=== PATIENT | male | born 1940 | race Caucasian/White ===

== ENCOUNTER 2024-06-26 12:05 | Observation (INO) ==
--- NOTE | 2024-06-21 10:07 | Anesthesiology Consultation ---
Date of Service June 21, 2024 Assessment & Plan (1) Encounter for pre-operative examination: Chart Review Chart Review: Pending: Refer to Additional Notes / Consult section (please send optimization note to Cardio as well as request copy of recent testing (ECHO mentioned in 04/18/24 note)) and Patient NOT seen in Pre Admission Testing Infectious Disease screening: Per PAT nursing assessment on 06/20/24, No known infectious disease contacts in past 10 days or current infectious disease symptoms. No recent travel outside the country. History Surgery Operation Date: 06/26/24 07:30 Proposed Procedures p TURP (Transurethral Resection of Prostate), Prostate Biopsy Under Anesthesia - Celestino Andre MD Height/Weight Height: 5 ft 7 in Weight: 65.771 kg Allergies Allergy/AdvReac Type Severity Reaction Status Date / Time Penicillins Allergy Unknown Unknown Verified 06/20/24 07:46 Medications Home Medications Medication Instructions Recorded Confirmed Last Taken amlodipine 10 mg tablet 10 mg PO QAM 01/20/22 06/20/24 Unknown cholecalciferol (vitamin D3) 25 25 mcg PO DAILY 01/20/22 06/20/24 Unknown mcg (1,000 unit) capsule ezetimibe 10 mg tablet (Zetia) 10 mg PO QAM 01/20/22 06/20/24 Unknown lisinopril 10 mg tablet 10 mg PO QAM 01/20/22 06/20/24 Unknown multivitamin 1 tab PO DAILY 01/20/22 06/20/24 Unknown nitroglycerin 0.4 mg sublingual 0.4 mg sublingual Q5M PRN Chest 01/20/22 06/20/24 Unknown tablet Pain pravastatin 20 mg tablet 20 mg PO QPM 01/20/22 06/20/24 Unknown vitamins A,C,M-nsvt-dxenyp 4,296 1 cap PO BID 01/20/22 06/20/24 Unknown mcg-226 mg-90 mg capsule (ICaps AREDS) omega 1-hae-mql-fish oil 60 mg-90 1 cap PO DAILY 04/19/22 06/20/24 Unknown mg-500 mg capsule (Fish Oil) ciprofloxacin HCl 500 mg tablet 500 mg PO BID #20 tabs 06/18/24 06/20/24 Unknown (Cipro) esomeprazole magnesium 40 mg 40 mg PO QAM 06/20/24 06/20/24 Unknown capsule,delayed release (Nexium) tadalafil 5 mg tablet 5 mg PO QAM 06/20/24 06/20/24 Unknown tamsulosin 0.4 mg capsule (Flomax) 0.4 mg PO QPM 06/20/24 06/20/24 Unknown Past Medical History Medical History (Updated 06/21/24 @ 11:52 by Pat Dickey PA-C) Asbestos exposure "Many many years ago" Follows with PCP - monitoring/no issues BPH (benign prostatic hyperplasia) with LUTS CAD (coronary artery disease) x2 stents - placed in [place] Dr Bari Casanova 10/2020 (R sided PLB and R sided PDA) - now follows Dr Marcello Borja (per most recent note, 'with residual 50% Cx lesion and mild LAD disease) GERD (gastroesophageal reflux disease) Hearing loss Bilateral hearing aids History of adverse reaction to anesthesia after 05/22/24 surgery under GA @ [facility]; experienced urinary retention that required ER visit - [facility] "Ended up needing catheter which resulted with UTI. Its all cleared up now" History of small bowel obstruction 2019 - No surgery - No current issues at this time HTN (hypertension) Hx: UTI (urinary tract infection) After 05/22/24 Surgery at [facility]. No current issues at this time. 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 (pathology results for LN and tumor bed showed no evidence of tumor) Prostate cancer 2019 - No surgery/Chemo/Xrt - [place] [facility] [place] Right bundle branch block Past Family History Family History Family/Other Hypertension Brother Cancer Heart disease Past Surgical History Surgical History (Updated 06/21/24 @ 11:52 by Pta Dickey PA-C) H/O epididymectomy H/O foot surgery Left H/O prostate biopsy History of cardiac cath x2 stents - placed in [place] Dr Bari Casanova 2017 - now follows Dr Marcello Borja Hx of appendectomy Hx of colonoscopy Hx of elbow surgery 03/22/24 R elbow tumor removed; 05/22/24 tumor bed excision and sentinel LN bx Hx of esophagogastroduodenoscopy Social History Smoking Status: Never smoker Do You Dip or Chew Tobacco: No Hx Alcohol Use: No Hx Substance Use: No substance use type: does not use Lab Results Anesthesia Preop Results Results Anesthesia Widget: WBC 8.95 K/ul (4.8-10.8) 06/18/24 Hgb 13.6 g/dl (14.0-18.0) L 06/18/24 Hct 39.8 % (42.0-52.0) L 06/18/24 Plt 290 K/uL (130-400) 06/18/24 Na 139 mmol/L (136-145) 06/18/24 K 3.6 mmol/L (3.5-5.1) 06/18/24 Cl 104 mmol/L (98-107) 06/18/24 CO2 30 mmol/L (21-32) 06/18/24 BUN 21 mg/dl (6-23) 06/18/24 Creat 1.02 mg/dl (0.6-1.4) 06/18/24 Glucose Level 102 mg/dl (70-99(Fasting)) H 06/18/24 Testing Electrocardiogram Date: 06/18/24 Findings: + NSR @ (74bpm) RBBB. Chest X-Ray Date: 06/18/24 Findings: + NAD Calcified granulomata of the mid right lung. Degenerative changes of the thoracic spine. Uncovertebral degenerative changes of the cervical spine. Degenerative changes of the right acromioclavicular joint .
[~2024-06-26 12:05] MED LIST: ACETAMINOPHEN 1000 MG/100 ML IV IV ONE; KETAMINE HCL 10MG/ML SYR ONE; PROPOFOL IV EMULSION 10 MG/ML 100 ML VIAL IV ONE
[2024-06-26] MEDS ORDERED: MIDAZOLAM HCL 1 MG/ML 2ML VIAL ONE (12:11)
[2024-06-26] MEDS: LACTATED RINGER'S 1,000 ML IV SCH (12:30)
[2024-06-26] MEDS: SODIUM CHLORIDE 0.9% 1,000 ML IV SCH (12:31)
[2024-06-26] MEDS: GENTAMICIN SULFATE 80 MG in DEXTROSE 5% 100 ML IV SCH (12:32)
[2024-06-26] MEDS ORDERED: fentaNYL citrate PF 100 MCG/2 ML VIAL ONE (12:53)
[2024-06-26] MEDS ORDERED: LIDOCAINE 2% 2 ML VIAL/AMP(20MG/ML) INFIL ONE (12:54)
[2024-06-26] MEDS ORDERED: PROPOFOL IV EMULSION 10 MG/ML 20 ML VIAL IV ONE (12:54)
--- NOTE | 2024-06-26 12:57 | History & Physical Bridge Note ---
Date of Service June 26, 2024 History & Physical Bridge Note I have examined the patient, reviewed the History & Physical and in the interval since the performance of the History & Physical I have noted the following changes of clinical significance: no changes noted
[2024-06-26] MEDS ORDERED: fentaNYL citrate PF 100 MCG/2 ML VIAL IV PRN (13:03)
[2024-06-26] MEDS ORDERED: ATROPINE SULFATE 0.1 MG/ML 10ML SYR IV PRN (13:03)
[2024-06-26] MEDS ORDERED: ePHEDrine sulfate 50 MG/ML AMP IV PRN (13:03)
[2024-06-26] MEDS ORDERED: PROMETHAZINE HCL 6.25 MG in SODIUM CHLORIDE 0.9% 50 ML IV PRN (13:03)
[2024-06-26] MEDS ORDERED: ePHEDrine sulfate 50 MG/ML AMP ONE (13:12)
[2024-06-26] MEDS: AMPICILLIN 1,000 MG in SODIUM CHLOR 0.9% MINI-B 100 ML IV SCH ×2 (13:30→19:48)
[2024-06-26] MEDS ORDERED: PHENYLEPHRINE HCL 10 MG/ML VIAL ONE (13:32)
[2024-06-26] MEDS ORDERED: ONDANSETRON INJ 2 MG/ML 2 ML VIAL ONE (13:35)
[2024-06-26] MEDS ORDERED: DEXAMETHASONE SOD INJ 4 MG/ML VIAL ONE (13:35)
--- NOTE | 2024-06-26 15:16 | Operative Report ---
PG Post Operative Report Pre & Post Diagnosis Operation Date: 06/26/24 13:20 Pre-Op Diagnosis: Malignant Neoplasm of Prostate Post-Op Diagnosis: Malignant Neoplasm of Prostate I identified the patient and participated in the time-out.: Yes Procedure Operation Date: 06/26/24 13:20 Actual Procedures p Transurethral Resection of Prostate, Prostate Biopsy Under Anesthesia(Not Applicable) - Celestino Andre MD Surgeon Celestino Andre MD Tenterer none Estimated Blood Loss 10 Findings Consistent with Post-Op Diagnosis Specimens 1. Prostate biopsy specimens Right base x 2 Right mid x 2 Right apex x 2 Right anterior x 1 Left base x 2 Left mid x 2 Left apex x 2 Left anterior x 1 2. TURP specimenprostate chips Description of Procedure Patient was identified in the preoperative holding area and appropriate informed consents reviewed and completed and he was transported the operating suite. Upon arrival he received appropriate preoperative antibiotics in the form ampicillin and gentamicin. Of note, he has underlying penicillin allergy and showed no reaction to the administered medications. After induction of general anesthesia was placed in dorsal lithotomy position. Before sterile prep and drape a digital rectal examination was performed which revealed no nodules or abnormalities. A transrectal ultrasound probe was inserted and ultrasonographic evaluation conducted. He has numerous small calcifications scattered throughout the prostate and some intravesical intrusion of his prostate into the bladder. His prostate volume was estimated to be approximately 65 cc. After the ultrasonographic evaluation and began my biopsies taking a standard sextant biopsy template worth of specimens. He tolerated the procedure well and had no significant bleeding. The ultrasound was removed and the patient was sterilely prepped and draped in standard fashion. To begin the cystoscopic portion of the case I advanced a resectoscope with 30 degree lens via urethra. He has no strictures and he has an enlarged prostate with a high bladder neck and clear intravesical intrusion. He is a heavily trabeculated bladder with numerous small calculi scattered around the dependent portion of the bladder. I was able to identify ureteral orifices before beginning resection of the intravesical component of the prostate. I started at 5 and 7:00 making incisions to bring this tissue down to the normal level of the bladder neck. I then resected the intervening tissue. I progressed by resecting the remainder of the bladder neck circumferentially and then addressing the left lateral lobe followed by the right lateral lobe. Apical tissue was trimmed last. Posterior tissue was also trimmed throughout the case. All specimen was irrigated free of the bladder and hemostasis obtained. At the conclusion, a 22 Turkmen Horowitz catheter was inserted and inflated with 30 cc of water. He was reversed of anesthesia and taken to the recovery room in standard fashion. There were no complications. Prostate chips were sent as a specimen as were all of the individual biopsy specimens from the prostate biopsy. I attest to the content of the Intraoperative Record and any orders documented therein. Any exceptions are noted below.
--- NOTE | 2024-06-26 15:45 | Anesthesiology Progress Note ---
Date of Service June 26, 2024 Anesthesia Post Procedure Vital Signs Vital Signs: Temp Pulse Pulse Resp BP Pulse Ox O2 Del Method 06/26/24 15:30 66 13 127/65 99 Oxymask 06/26/24 15:20 62 11 L 128/68 99 Oxymask 06/26/24 15:10 67 10 L 134/77 99 Oxymask 06/26/24 15:00 73 12 131/75 99 Oxymask 06/26/24 14:51 36.0 C L 74 17 141/76 H 98 Oxymask 06/26/24 12:38 36.7 C 75 18 147/77 H 100 Room Air O2 Flow Rate 06/26/24 15:30 4 06/26/24 15:20 4 06/26/24 15:10 4 06/26/24 15:00 4 06/26/24 14:51 4 06/26/24 12:38 Transfer of Care Handoff Completed per policy Notes Mental Status: alert / awake / arousable and participated in evaluation Nausea / Vomiting: adequately controlled Pain: adequately controlled Airway Patency, RR, SpO2: stable & adequate BP & HR: stable & adequate Hydration State: stable & adequate Anesthetic Complications: no major complications apparent and Pt Satisfied with anesthetic care
[2024-06-26] MEDS: FAMOTIDINE/PF 20 MG/2 ML VIAL IV ONE (16:16)
[2024-06-26] MEDS: ALLERGY Noted to ORDERED Medication SCH (16:18)
[2024-06-26] MEDS ORDERED: GENTAMICIN SULFATE 80 MG in DEXTROSE 5% 100 ML IV SCH (16:21)
[2024-06-26] MEDS ORDERED: GENTAMICIN CONSULT ACTIVE PRN (16:21)
[2024-06-26] MEDS ORDERED: NITROGLYCERIN SL 0.4 MG/TAB TAB SL PRN (16:21)
[2024-06-26] MEDS: SODIUM CHLORIDE 0.9% 500 ML IV SCH (16:42)
[2024-06-26 17:31] LABS: Creatinine Clr Calc Pharmacy 64.3 ml/min
[2024-06-26] MEDS: GENTAMICIN SULFATE 340 MG in DEXTROSE 5% 100 ML IV SCH (17:53)
[2024-06-26] MEDS: MoRPHine SULFATE 2 MG/ML CARP IV STA (19:45)
[2024-06-26] MEDS ORDERED: AMPICILLIN 1,000 MG in SODIUM CHLOR 0.9% MINI-B 100 ML IV SCH (19:45)
[2024-06-26] MEDS: PRAVASTATIN SOD 20 MG TAB PO SCH (19:48)
--- NOTE | 2024-06-26 20:59 | Communication Note ---
Date of Service: June 26, 2024 I was called by nursing staff at approximately 8:21 PM the patient's Horowitz catheter appeared to be nonfunctional. I reported the patient's 4 at bedside within 5 minutes. This patient underwent a TURP by Dr. Andre earlier today. The nurse noted that the patient was having excruciating pain as though his bladder would not empty. She attempted to flush and irrigate his catheter and was unsuccessful at doing so. She initially talked with Dr. Andre who instructed her to switch the patient's Horowitz catheter when she started to deflate the balloon of the patient's existing Horowitz catheter it began to drain a little bit resulting in some relief of the patient's symptoms. Upon my reported the bedside and hearing this information I decided to flush and irrigate catheter which was unsuccessful. I had the nurse perform a bladder scan and the patient had an excess of 600 cc of fluid in his bladder. I therefore elected to remove the patient's existing Horowitz catheter. I then easily placed a 20 Turkmen coud catheter under sterile conditions without difficulty. Upon placing his Horowitz catheter large amount of urine immediately drained out. As patient previous Horowitz catheter did appear to be clotted off, I did decide to flush and irrigate the newly placed catheter and upon doing so I was able to treat several small blood clots. I continue to flush and irrigate catheter until his urine was clear. I then placed the Horowitz catheter to gravity drainage and upon the conclusion of my procedure had approximately 100 cc of clear urine in the bladder. I then had the nurses perform an additional bladder scan the patient's bladder appeared to be empty. The patient noted marked symptomatic relief following the procedure noted above. I did discuss with the patient and the nurse that if his Horowitz catheter appears to clot off again they can employ manual flushing irrigation techniques and if this is unsuccessful he should notify me. I did discuss with the patient that if his current catheter clots off and we cannot flush and irrigated he will likely necessitate another catheter change but the need for this is yet to be determined.
--- NOTE | 2024-06-27 07:57 | Urology Progress Note ---
Date of Service June 27, 2024 Assessment & Plan (1) Benign localized prostatic hyperplasia with lower urinary tract symptoms (LUTS): (2) Prostate CA: Plan pod #1 s/p TURP and TRUS bx -recovery on pace - VT this AM - hope for d.c home this afternoon Admission and Anticipated Discharge Date Admission Date: June 26, 2024 Subjective had one episode of montes obstruction last night. switching the catheter resolved his issues no other problems feeling great this am Physical Exam Physical Exam: urine pink/clear draining well Results & Data Vital Signs (Past 12 Hours) Vital Signs Temp Pulse Pulse Resp BP Pulse Ox O2 Del Method 06/27/24 07:45 36.9 C 89 14 138/50 L 97 Room Air 06/27/24 07:06 36.8 C 96 H 18 145/80 H 96 Room Air 06/27/24 04:36 36.8 C 86 16 138/74 95 Room Air 06/27/24 00:10 36.6 C 88 16 138/73 99 Room Air PG Care Time/CCT Total # of Minutes Spent Total Time Spent with Patient: Total time spent is greater than 50% in coordination of care (as documented) at patient's floor/unit and/or counseling patient: Coding Level of Care Code None Diagnoses Benign localized prostatic hyperplasia with lower urinary tract symptoms (LUTS) N40.1 Prostate CA C61
[2024-06-27 08:03] LABS: Basophils # (auto) 0.01 K/uL (0.00-0.20); Basophils % (auto) 0.1 %; Hemoglobin 13.9 g/dl (14.0-18.0); Immature Granulocytes # (auto) 0.03 K/uL (0.01-0.20); Immature Granulocytes % (auto) 0.3 %; Lymphocytes # (auto) 1.18 K/uL (1.20-3.40); Lymphocytes % (auto) 11.5 %; Mean Corpuscular Hgb Conc 35.6 g/dL (32.0-36.0); Mean Corpuscular Volume 87.1 fL (80.0-100.0); Mean Platelet Volume 10.1 fL (9.4-12.4); Monocytes # (auto) 0.57 K/uL (0.11-0.59); Monocytes % (auto) 5.6 %; Neutrophils # (auto) 8.44 K/uL (1.40-6.50); Neutrophils % (auto) 82.5 %; Platelet Count 254 K/uL (130-400); RDW Coefficient of Variation 13.2 % (11.5-14.5); RDW Standard Deviation 41.4 fL (36.4-46.3); Red Blood Count 4.48 M/uL (4.70-6.10); White Blood Count 10.23 K/ul (4.8-10.8)
[2024-06-27 08:15] LABS: BUN Creatinine Ratio 19.5 (10-20); Calcium 10.6 mg/dl (8.6-10.3); Creatinine Clr Calc Pharmacy 62.7 ml/min
[2024-06-27] MEDS: lisinopril 10 MG TAB PO SCH (08:23)
[2024-06-27] MEDS: PANTOprazole 40 MG TAB PO SCH (08:23)
[2024-06-27] MEDS: MULTIVITAMIN TAB PO SCH (08:23)
[2024-06-27] MEDS: EZETIMIBE 10 MG TAB PO SCH (08:23)
[2024-06-27] MEDS: amLODIPine BESYLATE 5 MG TAB PO SCH (12:05)
--- NOTE | 2024-06-29 13:52 | Discharge Summary ---
Date of Service June 29, 2024 Admission HPI Per Admitting Provider Patient admitted for TURP secondary to urinary retention Principal Diagnosis Urinary retention/prostate cancer Discharge Data Allergies Allergy/AdvReac Type Severity Reaction Status Date / Time Penicillins Allergy Unknown Unknown Verified 06/26/24 12:23 Procedures Performed Operation Date: 06/26/24 13:20 Actual Procedures p Transurethral Resection of Prostate, Prostate Biopsy Under Anesthesia(Not Applicable) - Celestino Andre MD Hospital Course (1) Prostate CA: (2) Benign localized prostatic hyperplasia with lower urinary tract symptoms (LUTS): Plan Patient admitted for TURP and prostate biopsydetails of those procedures as dictated previously in the operative report. In summary, he tolerated the procedure well. He did have some brief catheter obstruction on the night of surgery but this was navigated at the bedside. He passed a voiding trial in the morning on postoperative day #1 and was discharged home in stable condition. There were no complications. Total Time Total Time Spent Total Time Spent (In Minutes): 15 Discharge Plan Discharge Items Patient Disposition: Home - Self-Care Reason For Visit: Malignant Neoplasm of Prostate, Benign Prostatic H Discharge Diagnosis: Malignant Neoplasm of Prostate, BPH Activity: Per Instructions section Non-emergency contact: Surgeon and Urologist Call non-emergency contact if: you have any medication questions, your symptoms worsen, your pain is not controlled, your pain is worsening and you have a fever Follow-up/Referrals: Celestino Andre MD [Physician] - Santana Bangura DO [Primary Care Provider] - Diet: Regular Addtl Attending Provider Instructions: The urology office will contact you to arrange a follow-up visit. Please complete antibiotics as prescribed. Please take all medications as prescribed and keep all follow-ups as scheduled. Please call our office at [phone] with any questions, concerns or need to reschedule appointments for any reason. We are happy to assist you. Tips for your recovery at home: Dont be alarmed by brownish or reddish blood or clots in your urine. This is a result of the procedure. This may occur off and on for weeks to months after the procedure but should continue to improve. Drink plenty of fluids during the day (enough to keep your urine very light colored). This will help keep a healthy flow of urine. Do not lift >25 lbs until your followup Avoid constipation. Please use a stool softener (Colace) for the first two weeks after your procedure Be sure to finish the antibiotics as prescribed. When to call [facility] at [phone]: Your urine contains heavy blood clots or you are unable to urinate You are constantly leaking urine Fever of 101F or higher, chills, nausea, or vomiting Your pain is not relieved with medication Pending Studies at Discharge: Yes (pathology) Stand-Alone Forms: My [facility], Smoking Cessation Medications and DC Order Prescriptions: Continued omega 0-ojh-dlx-fish oil [Fish Oil] 60-90-500 mg capsule 1 cap PO DAILY amlodipine 10 mg tablet 10 mg PO QAM ezetimibe [Zetia] 10 mg tablet 10 mg PO QAM ICaps AREDS [id number],[id number] uusq-zo-vpcr capsule 1 cap PO BID lisinopril 10 mg tablet 10 mg PO QAM multivitamin Tablet 1 tab PO DAILY nitroglycerin 0.4 mg tablet, sublingual 0.4 mg sublingual Q5M PRN (Reason: Chest Pain) Rx Instructions: do not exceed 3 doses per episode pravastatin 20 mg tablet 20 mg PO QPM cholecalciferol (vitamin D3) 25 mcg (1,000 unit) capsule 25 mcg PO DAILY ciprofloxacin HCl [Cipro] 500 mg tablet 500 mg PO BID Qty: 20 0RF Rx Instructions: Please start 3 days prior to your surgery with Dr. Andre tamsulosin [Flomax] 0.4 mg capsule 0.4 mg PO QPM tadalafil 5 mg tablet 5 mg PO QAM esomeprazole magnesium [Nexium] 40 mg Capsule,Delayed Release(Dr/Ec) 40 mg PO QAM Discharge Orders: Discharge Order (Routine); Ordered 06/27/24 Ordered By: Luisa Calix Admission Data Admit Date/Time: 06/26/24 15:07 Attending Provider: Celestino Andre Admit Provider: Celestino Andre Primary Care Provider: Santana Bangura Other Interventions: Discharge Summary Assessment (RN) Last Done: 06/27/24 14:54 Coding Level of Care Code 21908 IN/OBS DISCH 30 MIN/LESS Diagnoses Prostate CA C61 Benign localized prostatic hyperplasia with lower urinary tract symptoms (LUTS) N40.1
== END 2024-06-27 16:03 | disposition home or self-care (01) ==
LOC: ASU 12:05 → 3E 12:05
DX: I25.10 Atherosclerotic heart disease of native coronary artery without angina pectoris; C61 Malignant neoplasm of prostate; K21.9 Gastro-esophageal reflux disease without esophagitis; R30.9 Painful micturition, unspecified; Z95.5 Presence of coronary angioplasty implant and graft; I10 Essential (primary) hypertension; Z88.0 Allergy status to penicillin; Z79.899 Other long term (current) drug therapy; N40.1 Benign prostatic hyperplasia with lower urinary tract symptoms

== ENCOUNTER 2025-02-01 13:57 | Inpatient (IN) ==
--- NOTE | 2025-02-01 14:32 | Emergency Department Note ---
Impression & Plan FIDEL (acute kidney injury) ADMIT ED Provider Note HPI: History obtained from patient. The patient is a 85-year-old gentleman who presents the emergency department with lower back pain and left-sided abdominal pain 3 days after having a cystoscopy for a left-sided bladder mass. Patient states that he had increasing pain yesterday afternoon throughout the night last night and into today. Patient states that he only urinated about 1 time in the past 24 hours and it was not much urine. He states it was clear in appearance. Patient states he is also had some constipation. Patient denies any recent fever/chills, on arrival here to the ED the patient is hemodynamically stable, he otherwise appears to be in no acute distress on my initial assessment. ROS: - Per HPI Differential Diagnosis: Urinary tract infection, acute cystitis, pyelonephritis, ureteral rupture, perforated viscus, obstructive uropathy, amongst other potential pathologies. *Outpatient medications and allergy history reviewed. PE: General: Alert HEENT: Normocephalic, trachea midline Eyes: Extraocular eye movement is intact, no scleral erythema Pulmonary: Clear to auscultation bilaterally, no wheezing Cardio: Regular rate and rhythm GI: Abdomen is soft to palpation, there is some generalized tenderness without guarding rigidity : Moderate suprapubic tenderness to palpation MSK: No evidence of trauma or malformation of the extremities, no edema Skin: No evidence of rash Neuro: Alert, no focal deficits Psychiatric: Cooperative INDEPENDENT INTERPRETATIONS: awake overnight monitor: (As interpreted by myself): - An order was placed for continuous cardiac monitoring - Patient was noted to be in sinus rhythm with a rate of 80 Interventions provided in ED: - IV fluid bolus, IV ceftriaxone, IV morphine, IV Zofran, IV Dilaudid Medical Decision Making: IV was established and lab work obtained, patient was placed on awake overnight monitor. Lab work shows no leukocytosis, hemoglobin is stable at 11.7, platelet count is normal, CMP shows creatinine elevation to 3.39 which does appear to be new (baseline 1.6 in December). Urinalysis shows 3+ blood, 1+ leukocyte Estrace with mild pyuria. Will send for urine culture. Blood cultures were also drawn. CT imaging of the abdomen pelvis without contrast shows prostatitis, cystitis, hydronephrosis, and presacral inflammatory changes. Patient was having some difficulty urinating on his own here in the ED and therefore Horowitz catheter was placed with approximately 250 cc of clear yellow urine drained. I discussed all of the above findings with the on-call urologist, Dr. Mart, he is in agreement for the patient to be admitted and does recommend starting IV antibiotics with ceftriaxone. Case was then discussed with the on-call hospitalist and the patient was placed for admission in stable condition. Consultants/Discussions held with other healthcare providers: - Urology, Dr. Mart - Hospitalist, Dr. Wylie Disposition discussion held by myself with: - Patient and family at the bedside Diagnosis: 1. Acute kidney injury 2. Prostatitis, postoperative 3. UTI, acute Disposition: Admission Bro Burks DO Emergency Medicine Past Med/Surg History Problem List (Updated 02/01/25 @ 18:33 by Bro Burks DO) FIDEL (acute kidney injury) (Acute) Encounter for pre-operative examination Hydronephrosis Bladder tumor Nasal septal deviation Nasal crusting Sensorineural hearing loss, bilateral Benign localized prostatic hyperplasia with lower urinary tract symptoms (LUTS) Arthritis High blood pressure Hyperlipidemia GERD (gastroesophageal reflux disease) CAD (coronary artery disease) Prostate CA Medical History Bladder mass incidentally found while at [facility] ER 12/2024 - reason for upcoming procedure Osteoarthritis Right bundle branch block History of adverse reaction to anesthesia after 05/22/24 surgery under GA @ [facility]; experienced urinary retention that required ER visit - [facility] "Ended up needing catheter which resulted with UTI. 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 (pathology results for LN and tumor bed showed no evidence of tumor) had radiation treatments and currently gets Keytruda infusions. Hearing loss Bilateral hearing aids BPH (benign prostatic hyperplasia) with LUTS History of small bowel obstruction 2019 - No surgery - No current issues at this time Hyperlipidemia HTN (hypertension) GERD (gastroesophageal reflux disease) CAD (coronary artery disease) x2 stents - placed in [place] Dr Bari Casanova 10/2020 (R sided PLB and R sided PDA) - now follows Dr Marcello Borja (per most recent note, 'with residual 50% Cx lesion and mild LAD disease) Prostate cancer 2019 - No surgery/Chemo/Xrt- Follows [facility] Urology Asbestos exposure "Many many years ago" Follows with PCP - monitoring/no issues Surgical History Hx of elbow surgery 03/22/24 R elbow tumor removed; 05/22/24 tumor bed excision and sentinel LN bx Hx of esophagogastroduodenoscopy Hx of colonoscopy H/O prostate biopsy H/O foot surgery Left H/O epididymectomy Hx of appendectomy History of cardiac cath x2 stents - placed in [place] Dr Bari Casanova 2018 - now follows Dr Armendariz Cardio Family History Family/Other Hypertension Brother Heart disease Cancer Other No family history of adverse response to anesthesia Social History Smoking Status: Never smoker Second Hand Exposure: No; Do You Dip or Chew Tobacco: No; Hx Alcohol Use: No Hx Substance Use: No Preferred Language: Burkinan Communication Ability: Effective Roofer [place]um Required: No Beliefs That Will Affect Care: None marital status: Current Living Situation: Spouse current occupational status: retired Feels Safe at Home: Yes Assistive Devices: Glasses and Hearing Aid - Bilateral Allergies Allergies Allergy/AdvReac Type Severity Reaction Status Date / Time Penicillins Allergy Unknown Unknown Verified 01/29/25 05:57 Home Meds Home Medications Medication Instructions Recorded Confirmed amlodipine 10 mg tablet 10 mg PO QAM 01/20/22 02/01/25 cholecalciferol (vitamin D3) 25 25 mcg PO QAM 01/20/22 02/01/25 mcg (1,000 unit) capsule ezetimibe 10 mg tablet (Zetia) 10 mg PO QAM 01/20/22 02/01/25 lisinopril 10 mg tablet 10 mg PO HS 01/20/22 02/01/25 multivitamin 1 tab PO QAM 01/20/22 02/01/25 nitroglycerin 0.4 mg sublingual 0.4 mg sublingual Q5M PRN Chest 01/20/22 02/01/25 tablet Pain pravastatin 20 mg tablet 20 mg PO HS 01/20/22 02/01/25 omega 5-srp-kiz-fish oil 60 mg-90 1 cap PO HS 04/19/22 02/01/25 mg-500 mg capsule (Fish Oil) esomeprazole magnesium 40 mg 40 mg PO QAM 06/20/24 02/01/25 capsule,delayed release (Nexium) acetaminophen 500 mg tablet 1,000 mg PO TID PRN Pain 01/25/25 02/01/25 (Tylenol Extra Strength) aspirin 81 mg capsule 81 mg PO QAM 01/25/25 02/01/25 coQ10 (ubiquinol) 200 mg capsule 200 mg PO HS 01/25/25 02/01/25 methylcellulose (laxative) 1 tbsp PO QAM 01/25/25 02/01/25 (Citrucel Sugar Free oral powder) vitamins A,C,I-zhyh-hliolx 4,296 1 cap PO BID 01/25/25 02/01/25 mcg-226 mg-90 mg capsule (PreserVision AREDS) Previous Rx's Medication Instructions Recorded tadalafil 5 mg tablet 5 mg PO QAM #90 tabs 07/25/24 ciprofloxacin HCl 500 mg tablet 500 mg PO BID #6 tabs 01/29/25 (Cipro) Results & Data (ED) Vital Signs Vital Signs - 24 hr 02/01/25 14:05 02/01/25 14:42 02/01/25 15:03 Temperature 36.6 C Temperature Source Temporal Artery Scan Pulse Rate 79 78 76 Pulse Rhythm Regular Respiratory Rate 18 16 Blood Pressure 155/76 H Blood Pressure Mean 102 Pulse Oximetry 98 96 Oxygen Delivery Method Room Air Room Air Sepsis Recent Fever Within 48 Hours No Sepsis New/Unexplained Change in Mental Status N/A Sepsis Action Taken by Nursing No Action Required 02/01/25 15:35 02/01/25 16:00 02/01/25 16:30 Temperature Temperature Source Pulse Rate 78 82 80 Pulse Rhythm Respiratory Rate 13 15 14 Blood Pressure 132/73 143/73 H 150/77 H Blood Pressure Mean 104 106 112 Pulse Oximetry 95 99 91 Oxygen Delivery Method Sepsis Recent Fever Within 48 Hours Sepsis New/Unexplained Change in Mental Status Sepsis Action Taken by Nursing 02/01/25 17:30 02/01/25 18:00 Temperature Temperature Source Pulse Rate 87 78 Pulse Rhythm Respiratory Rate 12 15 Blood Pressure 153/74 H 145/78 H Blood Pressure Mean 120 106 Pulse Oximetry 95 97 Oxygen Delivery Method Sepsis Recent Fever Within 48 Hours Sepsis New/Unexplained Change in Mental Status Sepsis Action Taken by Nursing Laboratory Data 02/01/25 14:35 02/01/25 14:35 Lab Results 02/01/25 02/01/25 Range/Units 14:35 15:36 WBC 7.49 (4.8-10.8) K/ul RBC 3.76 L (4.70-6.10) M/uL Hgb 11.7 L (14.0-18.0) g/dl Hct 33.2 L (42.0-52.0) % MCV 88.3 (80.0-100.0) fL MCH 31.1 (25.0-34.0) pg MCHC 35.2 (32.0-36.0) g/dL RDW Std Deviation 43.9 (36.4-46.3) fL RDW Coeff of [place] 13.6 (11.5-14.5) % Plt Count 182 (130-400) K/uL MPV 9.7 (9.4-12.4) fL Immature Gran % (Auto) 0.4 % Neut % (Auto) 85.0 % Lymph % (Auto) 6.3 % [place] % (Auto) 7.2 % Eos % (Auto) 0.7 % Baso % (Auto) 0.4 % Neut # (Auto) 6.37 (1.40-6.50) K/uL Lymph # (Auto) 0.47 L (1.20-3.40) K/uL [place] # (Auto) 0.54 (0.11-0.59) K/uL Eos # (Auto) 0.05 (0.00-0.50) K/uL Baso # (Auto) 0.03 (0.00-0.20) K/uL Immature Gran # (Auto) 0.03 (0.01-0.20) K/uL Sodium 137 (136-145) mmol/L Potassium 3.9 (3.5-5.1) mmol/L Chloride 108 H (98-107) mmol/L Carbon Dioxide 22 (21-32) mmol/L Anion Gap 7 (3-11) BUN 50 H (6-23) mg/dl Creatinine 3.39 H (0.6-1.4) mg/dl Est Cr Clr Drug Dosing Not Reportable eGFR 17.04 BUN/Creatinine Ratio 14.7 (10-20) Glucose 87 (70-99(Fasting)) mg/dl Calcium 10.1 (8.6-10.3) mg/dl Total Bilirubin 0.5 (0.2-1.0) mg/dl AST 14 (13-39) U/L ALT 11 (7-52) U/L Alkaline Phosphatase 65 (34-104) U/L Total Protein 6.7 (6.0-8.3) gm/dl Albumin 3.9 (3.4-5.0) gm/dl Globulin 2.8 (2.5-4.0) gm/dl Albumin/Globulin Ratio 1.4 (0.9-2) Lipase 51 (11-82) U/L Urine Color Yellow Urine Appearance Clear (Clear) Urine pH 6.0 (4.5-7.5) Ur Specific [place] 1.007 (1.000-1.030) Urine Protein 1+ H (Negative) Urine Glucose (UA) Negative (Negative) Urine Ketones Negative (Negative) Urine Blood 3+ H (Negative) Urine Nitrite Negative (Negative) Urine Bilirubin Negative (Negative) Urine Urobilinogen Negative (Negative) Ur Leukocyte Esterase 1+ H (Negative) Urine WBC (Auto) 6-10 H (0-5) /hpf Urine RBC (Auto) 6-10 H (0-2) /hpf U Hyaline Cast (Auto) 0-2 (0-2) /lpf U Epithel Cells (Auto) 0-2 (0-2) /hpf Urine Bacteria (Auto) None Seen (None Seen) Urine Comment Administered Medications Discontinued Medications Hydromorphone HCl (Hydromorphone Inj 1 Mg/Ml Syringe) 1 mg IV NOW STA Stop: 02/01/25 16:25 Last Admin: 02/01/25 16:34 Dose: 1 mg Documented By: ANT Ceftriaxone Sodium (Rocephin) 2,000 mg in 50 mls @ 100 mls/hr IV NOW STA Stop: 02/01/25 16:30 Last Infusion: 02/01/25 16:46 Dose: Infused Documented By: Admin: 02/01/25 16:18 Dose: 100 mls/hr Documented By: ANT Sodium Chloride (Nss) 1,000 mls @ 999 mls/hr IV .Q1H1M ONE Stop: 02/01/25 17:01 Last Infusion: 02/01/25 17:16 Dose: Infused Documented By: Admin: 02/01/25 16:18 Dose: 999 mls/hr Documented By: ANT Morphine Sulfate (Morphine Sulfate 4 Mg/Ml 1 Ml Carp\\Vial) 4 mg IV NOW STA Stop: 02/01/25 14:31 Last Admin: 02/01/25 14:40 Dose: 4 mg Documented By: ANT Morphine Sulfate (Morphine Sulfate 4 Mg/Ml 1 Ml Carp\\Vial) 4 mg IV NOW STA Stop: 02/01/25 15:25 Last Admin: 02/01/25 15:41 Dose: 4 mg Documented By: ANT Ondansetron HCl (Ondansetron Inj 2 Mg/Ml 2 Ml Vial) 4 mg IV NOW STA Stop: 02/01/25 14:31 Last Admin: 02/01/25 14:40 Dose: 4 mg Documented By: ANT Imaging Data Radiologist's Impression: Abdomen/Pelvis CT 02/01/25 14:30 CT SCAN OF THE ABDOMEN AND PELVIS WITHOUT IV CONTRAST CLINICAL HISTORY: Back pain. Lower abdominal pain. Recent cystoscopy. COMPARISON STUDY: Abdominal CT dated 12/22/2024. PET/CT dated 04/30/2024. TECHNIQUE: CT scan of the abdomen and pelvis is performed from the lung bases to the proximal femora. Images are reviewed in the axial, sagittal, and coronal planes. IV contrast was not administered for this examination. Note that the examination is suboptimal without IV contrast. A dose lowering technique was utilized adhering to the principles of ALARA. CT DOSE: 722.8 mGy.cm FINDINGS: Lung bases: The heart is enlarged noting trace pericardial effusion. The coronary arteries are densely calcified. There is trace right pleural effusion. 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 There is dependent atelectasis. A 5 mm left basilar pulmonary nodule is seen on image #47. There is a tiny hiatal hernia. Liver: The unenhanced liver is normal in size, contour, and attenuation. There is no intrahepatic biliary ductal dilatation. Gallbladder: Unremarkable. Spleen: Normal in size and attenuation. Pancreas: The unenhanced pancreas is grossly unremarkable. Adrenal glands: Unremarkable. Kidneys: The unenhanced kidneys are normal in size. There is moderate to severe bilateral hydroureteronephrosis, right side greater than left. The ureters are dilated to the inflammatory process in the pelvis. There are at least 4 nonobstructing right renal calculi which measure up to 7 mm. The left calculi are clearly seen and there is no ureteral stone. There is no evidence of contour deforming renal mass lesion. Abdominal vasculature: There is moderate to advanced atherosclerotic calcification and mild ectasia of the abdominal aorta. Bowel: The rectal wall appears markedly thickened with surrounding inflammation. There is no bowel obstruction. Moderate fecal retention is seen throughout the colon. There are scattered colonic diverticula without CT evidence of acute diverticulitis. A duodenal diverticulum is noted. The appendix is not visualized. Peritoneum: There is trace perihepatic ascites. There is also free fluid in the right lower quadrant. No intraperitoneal free air is identified. Lymphadenopathy: None. Pelvic viscera: The prostate gland is enlarged and heterogeneous. A central filling defect suggests prior TURP. The bladder is distended and contains intraluminal gas. The bladder wall is significantly thickened, asymmetrically greatest posteriorly and on the left. The degree of bladder wall thickening is significantly increased or 12/22/2024. The bladder lesion seen on the prior study is not discretely visualized. There is significant pericystic inflammation, which extends around the rectum and in the presacral region. Skeletal structures: The skeletal structures are osteopenic. There is mild to moderate lumbosacral spondylosis. Minimal anterolisthesis is seen at L4-L5. No lytic or blastic lesions are seen. IMPRESSION: 1. The bladder is distended and contains intraluminal gas. There is significant and asymmetric bladder wall thickening which is greatest posteriorly. The mass lesion seen on 12/22/2024 is not clearly visualized and may have been resected. This is suboptimally assessed without IV contrast. 2. There is significant inflammation around the bladder. The rectum is thick walled with surrounding inflammation, and there is also inflammatory change in the presacral space. This could represent an infectious or inflammatory cystitis/prostatitis. This could also be treatment related if the patient is receiving radiation. Clinical and laboratory correlation will be essential. 3. There is moderate to severe bilateral hydroureteronephrosis, right side greater than left. The ureters are dilated to the inflammatory process in the pelvis. 4. Right-sided nephrolithiasis. 5. Trace abdominopelvic ascites and trace right pleural effusion. 6. An indeterminate 6 mm pulmonary nodule is again seen at the left lung base. Attention at follow-up will be required. 7. Additional findings as above. ACT 112: Negative or not required by law. Electronically signed by: Barron Hardy M.D. 02/01/2025 3:16 PM Discharge Plan Visit Data Chief Complaint: Unable to Void Stated Complaint: POST OP PROBLEMS, BACK PAIN ED Provider: Bro Burks Discharge Problem: FIDEL (acute kidney injury) Patient Disposition: Admitted As Inpatient Condition: Fair Forms Stand Alone Forms: My [facility] [employer] [place] Prescriptions Prescriptions: No Action omega 3-zvd-equ-fish oil [Fish Oil] 60-90-500 mg capsule 1 cap PO HS amlodipine 10 mg tablet 10 mg PO QAM ezetimibe [Zetia] 10 mg tablet 10 mg PO QAM lisinopril 10 mg tablet 10 mg PO HS multivitamin Tablet 1 tab PO QAM nitroglycerin 0.4 mg tablet, sublingual 0.4 mg sublingual Q5M PRN (Reason: Chest Pain) Rx Instructions: do not exceed 3 doses per episode pravastatin 20 mg tablet 20 mg PO HS cholecalciferol (vitamin D3) 25 mcg (1,000 unit) capsule 25 mcg PO QAM tadalafil 5 mg tablet 5 mg PO QAM Qty: 90 3RF esomeprazole magnesium [Nexium] 40 mg Capsule,Delayed Release(Dr/Ec) 40 mg PO QAM Citrucel Sugar Free Powder 1 tbsp PO QAM acetaminophen [Tylenol Extra Strength] 500 mg Tablet 1,000 mg PO TID PRN (Reason: Pain) aspirin 81 mg Capsule 81 mg PO QAM PreserVision AREDS 4,296 mcg-226 mg-90 mg Capsule 1 cap PO BID coQ10 (ubiquinol) 200 mg Capsule 200 mg PO HS ciprofloxacin HCl [Cipro] 500 mg tablet 500 mg PO BID Qty: 6 0RF Patient Comments: filled 01/29 3 day supply #6 Referrals Referrals: Santana Bangura DO [Primary Care Provider] -
[2025-02-01] MEDS: MoRPHine SULFATE 4 MG/ML 1 ML CARP\\VIAL IV STA ×2 (14:40→15:41)
[2025-02-01] MEDS: ONDANSETRON INJ 2 MG/ML 2 ML VIAL IV STA (14:40)
[2025-02-01 14:49] LABS: Hematocrit (blood only) 33.2 % (42.0-52.0); Hemoglobin 11.7 g/dl (14.0-18.0); Immature Granulocytes # (auto) 0.03 K/uL (0.01-0.20); Immature Granulocytes % (auto) 0.4 %; Mean Corpuscular Hemoglobin 31.1 pg (25.0-34.0); Mean Corpuscular Volume 88.3 fL (80.0-100.0); Platelet Count 182 K/uL (130-400); RDW Standard Deviation 43.9 fL (36.4-46.3); Red Blood Count 3.76 M/uL (4.70-6.10); White Blood Count 7.49 K/ul (4.8-10.8)
[2025-02-01 15:06] LABS: Alanine Aminotransferase 11 U/L (7-52); Albumin Globulin Ratio 1.4 (0.9-2); Alkaline Phosphatase 65 U/L (34-104); Anion Gap 7 (3-11); Bilirubin,Total 0.5 mg/dl (0.2-1.0); Blood Urea Nitrogen 50 mg/dl (6-23); Calcium 10.1 mg/dl (8.6-10.3); Carbon Dioxide 22 mmol/L (21-32); Chloride 108 mmol/L (98-107); Globulin 2.8 gm/dl (2.5-4.0); Glucose 87 mg/dl (70-99(Fasting)); Lipase 51 U/L (11-82); Potassium 3.9 mmol/L (3.5-5.1); Sodium 137 mmol/L (136-145); Total Protein 6.7 gm/dl (6.0-8.3)
--- NOTE | 2025-02-01 15:17 | CT Scan Report ---
CT SCAN OF THE ABDOMEN AND PELVIS WITHOUT IV CONTRAST CLINICAL HISTORY: Back pain. Lower abdominal pain. Recent cystoscopy. COMPARISON STUDY: Abdominal CT dated 12/22/2024. PET/CT dated 04/30/2024. TECHNIQUE: CT scan of the abdomen and pelvis is performed from the lung bases to the proximal femora. Images are reviewed in the axial, sagittal, and coronal planes. IV contrast was not administered for this examination. Note that the examination is suboptimal without IV contrast. A dose lowering techn ique was utilized adhering to the principles of ALARA. CT DOSE: 722.8 mGy.cm FINDINGS: Lung bases: The heart is enlarged noting trace pericardial effusion. The coronary arteries are densel y calcified. There is trace right pleural effusion. Calcified pleural plaques are noted at the lung b ases, and are typical for asbestos-related pleural disease. There is dependent atelectasis. A 5 mm le ft basilar pulmonary nodule is seen on image #47. There is a tiny hiatal hernia. Liver: The unenhanced liver is normal in size, contour, and attenuation. There is no intrahepatic anatoly iary ductal dilatation. Gallbladder: Unremarkable. Spleen: Normal in size and attenuation. Pancreas: The unenhanced pancreas is grossly unremarkable. Adrenal glands: Unremarkable. Kidneys: The unenhanced kidneys are normal in size. There is moderate to severe bilateral hydroureter onephrosis, right side greater than left. The ureters are dilated to the inflammatory process in the pelvis. There are at least 4 nonobstructing right renal calculi which measure up to 7 mm. The left c alculi are clearly seen and there is no ureteral stone. There is no evidence of contour deforming corwin al mass lesion. Abdominal vasculature: There is moderate to advanced atherosclerotic calcification and mild ectasia o f the abdominal aorta. Bowel: The rectal wall appears markedly thickened with surrounding inflammation. There is no bowel ob struction. Moderate fecal retention is seen throughout the colon. There are scattered colonic diverti cula without CT evidence of acute diverticulitis. A duodenal diverticulum is noted. The appendix is not visualized. Peritoneum: There is trace perihepatic ascites. There is also free fluid in the right lower quadrant. No intraperitoneal free air is identified. Lymphadenopathy: None. Pelvic viscera: The prostate gland is enlarged and heterogeneous. A central filling defect suggests p rior TURP. The bladder is distended and contains intraluminal gas. The bladder wall is significantly thickened, asymmetrically greatest posteriorly and on the left. The degree of bladder wall thickening is significantly increased or 12/22/2024. The bladder lesion seen on the prior study is not discretely visualized. There is significant pericystic inflammation, which extends around the rectum and in the presacral region. Skeletal structures: The skeletal structures are osteopenic. There is mild to moderate lumbosacral sp ondylosis. Minimal anterolisthesis is seen at L4-L5. No lytic or blastic lesions are seen. IMPRESSION: 1. The bladder is distended and contains intraluminal gas. There is significant and asymmetric bladde r wall thickening which is greatest posteriorly. The mass lesion seen on 12/22/2024 is not clearly visu alized and may have been resected. This is suboptimally assessed without IV contrast. 2. There is significant inflammation around the bladder. The rectum is thick walled with surrounding inflammation, and there is also inflammatory change in the presacral space. This could represent an i nfectious or inflammatory cystitis/prostatitis. This could also be treatment related if the patient i s receiving radiation. Clinical and laboratory correlation will be essential. 3. There is moderate to severe bilateral hydroureteronephrosis, right side greater than left. The ure ters are dilated to the inflammatory process in the pelvis. 4. Right-sided nephrolithiasis. 5. Trace abdominopelvic ascites and trace right pleural effusion. 6. An indeterminate 6 mm pulmonary nodule is again seen at the left lung base. Attention at follow-up will be required. 7. Additional findings as above. ACT 112: Negative or not required by law. Electronically signed by: Barron Hardy M.D. 02/01/2025 3:16 PM
[2025-02-01 15:52] LABS: Appearance Urine Clear (Clear); Bacteria Urine Automated None Seen (None Seen); Cast Urine Automated 0-2 /lpf (0-2); Epithelial Cell Urine Auto 0-2 /hpf (0-2); Glucose Urine UA Negative (Negative)
[2025-02-01] MEDS: SODIUM CHLORIDE 0.9% 1,000 ML IV ONE (16:18)
[2025-02-01] MEDS: cefTRIAXone SODIUM 2,000 MG/50 ML BAG IV STA (16:18)
[2025-02-01] MEDS: HYDROmorphone INJ 1 MG/ML SYRINGE IV STA (16:34)
--- NOTE | 2025-02-01 18:14 | History & Physical Report ---
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 Creatinine is bumped. CT abdomen shows bilateral hydronephrosis. Concern for obstructive uropathy due to inflammation #Acute kidney injury Most likely obstructive uropathy with CT showing bilateral hydronephrosis and creatinine bumped by 2 points since a month ago Recent cystoscopy 3 days ago with successful partial resection of bladder mass but unsuccessful stenting of the ureter CT abdomen shows inflammation within the bladder, outside the bladder and around the rectum suggesting prostatitis/cystitis Will start IV ceftriaxone Urine culture and blood culture are being obtained in the emergency room Consult urology Will start IV fluids very gently in case part of it is related to dehydration Monitor BMP closely Avoid nephrotoxic medications #Low back pain/lower abdominal pain Related to obstructive uropathy/cystitis Will treat with IV Dilaudid Treat constipation #Constipation Will treat with MiraLAX and Colace #Hypertension Hold lisinopril due to FIDEL Continue amlodipine #Hyperlipidemia Continue pravastatin DVT prophylaxis: SCDs. 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 3 days ago, he had a cystoscopy and partial resection of the left urinary bladder mass, pathology pending. He received IV ciprofloxacin intraoperatively. Soon after he was discharged same day, he developed angioedema for which he went to an outside hospital and got admitted overnight. Ciprofloxacin and lisinopril were discontinued. He was doing well at home but last night, he started with a low back pain and lower abdominal pain. He had been constantly writhing in pain unable to get comfortable. No fever. He has had decreased urinary output but no blood in urine. The tells me that the initial plan was to put a stent in the ureteral orifice, but because of the extent of the cancer, the surgeon was unsuccessful. He had screening tests done in the emergency room. No leukocytosis. Creatinine was bumped from 1.6 1-month ago to 3.4 today. Urinalysis was fairly unremarkable. CT abdomen and pelvis showed some inflammation around the bladder, rectum which could represent infectious/inflammatory cystitis/prostatitis. He also has moderate to severe bilateral hydroureteronephrosis, right greater than left. The ED physician discussed the CT findings with the urologist who recommended admission, IV ceftriaxone, blood culture, urine culture. There is some concern for obstructive uropathy due to inflammation. The patient is in significant amount of pain requiring several doses of morphine and IV Dilaudid. He is finally sleeping now. Allergies Allergy/AdvReac Type Severity Reaction Status Date / Time Penicillins Allergy Unknown Unknown Verified 01/29/25 05:57 Home Medications Medication Instructions Recorded Confirmed Type amlodipine 10 mg tablet 10 mg PO QAM 01/20/22 02/01/25 History cholecalciferol (vitamin D3) 25 25 mcg PO QAM 01/20/22 02/01/25 History mcg (1,000 unit) capsule ezetimibe 10 mg tablet (Zetia) 10 mg PO QAM 01/20/22 02/01/25 History lisinopril 10 mg tablet 10 mg PO HS 01/20/22 02/01/25 History multivitamin 1 tab PO QAM 01/20/22 02/01/25 History nitroglycerin 0.4 mg sublingual 0.4 mg sublingual Q5M PRN Chest 01/20/22 02/01/25 History tablet Pain pravastatin 20 mg tablet 20 mg PO HS 01/20/22 02/01/25 History omega 4-bmi-nhd-fish oil 60 mg-90 1 cap PO HS 04/19/22 02/01/25 History mg-500 mg capsule (Fish Oil) esomeprazole magnesium 40 mg 40 mg PO QAM 06/20/24 02/01/25 History capsule,delayed release (Nexium) tadalafil 5 mg tablet 5 mg PO QAM #90 tabs 07/25/24 02/01/25 Rx acetaminophen 500 mg tablet 1,000 mg PO TID PRN Pain 01/25/25 02/01/25 History (Tylenol Extra Strength) aspirin 81 mg capsule 81 mg PO QAM 01/25/25 02/01/25 History coQ10 (ubiquinol) 200 mg capsule 200 mg PO HS 01/25/25 02/01/25 History methylcellulose (laxative) 1 tbsp PO QAM 01/25/25 02/01/25 History (Citrucel Sugar Free oral powder) vitamins A,C,C-flok-mfpyjg 4,296 1 cap PO BID 01/25/25 02/01/25 History mcg-226 mg-90 mg capsule (PreserVision AREDS) ciprofloxacin HCl 500 mg tablet 500 mg PO BID #6 tabs 01/29/25 02/01/25 Rx (Cipro) Past Med/Surg History Problem List Encounter for pre-operative examination Hydronephrosis Bladder tumor Nasal septal deviation Nasal crusting Sensorineural hearing loss, bilateral Benign localized prostatic hyperplasia with lower urinary tract symptoms (LUTS) Arthritis High blood pressure Hyperlipidemia GERD (gastroesophageal reflux disease) CAD (coronary artery disease) Prostate CA Medical History Bladder mass incidentally found while at [facility] ER 12/2024 - reason for upcoming procedure Osteoarthritis Right bundle branch block History of adverse reaction to anesthesia after 05/22/24 surgery under GA @ [facility]; experienced urinary retention that required ER visit - [facility] "Ended up needing catheter which resulted with UTI. Its all cleared up now" [place] cell cancer excision tumor 03/22/24 R elbow; tumor bed and R axillary sentinel LN bx. (pathology results for LN and tumor bed showed no evidence of tumor) had radiation treatments and currently gets Keytruda infusions. Hearing loss Bilateral hearing aids BPH (benign prostatic hyperplasia) with LUTS History of small bowel obstruction 2019 - No surgery - No current issues at this time Hyperlipidemia HTN (hypertension) GERD (gastroesophageal reflux disease) CAD (coronary artery disease) x2 stents - placed in [place] Dr Bari Casanova 10/2020 (R sided PLB and R sided PDA) - now follows Dr Marcello Borja (per most recent note, 'with residual 50% Cx lesion and mild LAD disease) Prostate cancer 2019 - No surgery/Chemo/Xrt- [place] [facility] As[place] exposure "Many many years ago" Follows with PCP - monitoring/no issues Surgical History Hx of elbow surgery 03/22/24 R elbow tumor removed; 05/22/24 tumor bed excision and sentinel LN bx Hx of esophagogastroduodenoscopy Hx of colonoscopy H/O prostate biopsy H/O foot surgery Left H/O epididymectomy Hx of appendectomy History of cardiac cath x2 stents - placed in [place] Dr Bari Casanova 2017 - now follows Dr Armendariz Cardio Family History Family/Other Hypertension Brother Heart disease Cancer Other No family history of adverse response to anesthesia Social History Smoking Status: Never smoker Second Hand Exposure: No; Do You Dip or Chew Tobacco: No; Hx Alcohol Use: No Hx Substance Use: No Preferred Language: Swiss Communication Ability: Effective Coat Finisher Required: No Beliefs That Will Affect Care: None marital status: Current Living Situation: Spouse current occupational status: retired Feels Safe at Home: Yes Assistive Devices: Glasses and Hearing Aid - Bilateral Review of Systems Review of Systems: All systems reviewed & are unremarkable except as noted in HPI & below Physical Exam Physical Exam: General: Awake, conversant. Writhing in pain initially during my encounter. However toward the end of my encounter, he finally fell asleep. He was accompanied by his and daughters in the room. Heart: S1, S2/regular rate and rhythm, no murmur rubs or gallops Lungs: Clear to auscultation bilaterally. Normal effort Abdomen: Soft/nondistended. Tenderness in the mid and lower abdomen with no rebound, rigidity or guarding. No hepatosplenomegaly Extremities: No clubbing/cyanosis. 1+ pitting bilateral edema Behavior: Appropriate, cooperative Results & Data Results & Data Vital Signs (Past 12 Hours) Vital Signs Temp Pulse Resp BP Pulse Ox O2 Del Method 02/01/25 17:30 87 12 153/74 H 95 02/01/25 16:30 80 14 150/77 H 91 02/01/25 16:00 82 15 143/73 H 99 02/01/25 15:35 78 13 132/73 95 02/01/25 15:03 76 02/01/25 14:42 78 16 96 Room Air 02/01/25 14:05 36.6 C 79 18 155/76 H 98 Room Air Laboratory Results Abnormal lab results 02/01/25 02/01/25 Range/Units 14:35 15:36 RBC 3.76 L (4.70-6.10) M/uL Hgb 11.7 L (14.0-18.0) g/dl Hct 33.2 L (42.0-52.0) % Lymph # (Auto) 0.47 L (1.20-3.40) K/uL Chloride 108 H (98-107) mmol/L BUN 50 H (6-23) mg/dl Creatinine 3.39 H (0.6-1.4) mg/dl Urine Protein 1+ H (Negative) Urine Blood 3+ H (Negative) Ur Leukocyte Esterase 1+ H (Negative) Urine WBC (Auto) 6-10 H (0-5) /hpf Urine RBC (Auto) 6-10 H (0-2) /hpf Diagnostic Findings Abdomen/Pelvis CT 02/01/25 14:30 CT SCAN OF THE ABDOMEN AND PELVIS WITHOUT IV CONTRAST CLINICAL HISTORY: Back pain. Lower abdominal pain. Recent cystoscopy. COMPARISON STUDY: Abdominal CT dated 12/22/2024. PET/CT dated 04/30/2024. TECHNIQUE: CT scan of the abdomen and pelvis is performed from the lung bases to the proximal femora. Images are reviewed in the axial, sagittal, and coronal planes. IV contrast was not administered for this examination. Note that the examination is suboptimal without IV contrast. A dose lowering technique was utilized adhering to the principles of ALARA. CT DOSE: 722.8 mGy.cm FINDINGS: Lung bases: The heart is enlarged noting trace pericardial effusion. The coronary arteries are densely calcified. There is trace right pleural effusion. 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 There is dependent atelectasis. A 5 mm left basilar pulmonary nodule is seen on image #47. There is a tiny hiatal hernia. Liver: The unenhanced liver is normal in size, contour, and attenuation. There is no intrahepatic biliary ductal dilatation. Gallbladder: Unremarkable. Spleen: Normal in size and attenuation. Pancreas: The unenhanced pancreas is grossly unremarkable. Adrenal glands: Unremarkable. Kidneys: The unenhanced kidneys are normal in size. There is moderate to severe bilateral hydroureteronephrosis, right side greater than left. The ureters are dilated to the inflammatory process in the pelvis. There are at least 4 nonobstructing right renal calculi which measure up to 7 mm. The left calculi are clearly seen and there is no ureteral stone. There is no evidence of contour deforming renal mass lesion. Abdominal vasculature: There is moderate to advanced atherosclerotic calcification and mild ectasia of the abdominal aorta. Bowel: The rectal wall appears markedly thickened with surrounding inflammation. There is no bowel obstruction. Moderate fecal retention is seen throughout the colon. There are scattered colonic diverticula without CT evidence of acute diverticulitis. A duodenal diverticulum is noted. The appendix is not visualized. Peritoneum: There is trace perihepatic ascites. There is also free fluid in the right lower quadrant. No intraperitoneal free air is identified. Lymphadenopathy: None. Pelvic viscera: The prostate gland is enlarged and heterogeneous. A central filling defect suggests prior TURP. The bladder is distended and contains intraluminal gas. The bladder wall is significantly thickened, asymmetrically greatest posteriorly and on the left. The degree of bladder wall thickening is significantly increased or 12/22/2024. The bladder lesion seen on the prior study is not discretely visualized. There is significant pericystic inflammation, which extends around the rectum and in the presacral region. Skeletal structures: The skeletal structures are osteopenic. There is mild to moderate lumbosacral spondylosis. Minimal anterolisthesis is seen at L4-L5. No lytic or blastic lesions are seen. IMPRESSION: 1. The bladder is distended and contains intraluminal gas. There is significant and asymmetric bladder wall thickening which is greatest posteriorly. The mass lesion seen on 12/22/2024 is not clearly visualized and may have been resected. This is suboptimally assessed without IV contrast. 2. There is significant inflammation around the bladder. The rectum is thick walled with surrounding inflammation, and there is also inflammatory change in the presacral space. This could represent an infectious or inflammatory cystitis/prostatitis. This could also be treatment related if the patient is receiving radiation. Clinical and laboratory correlation will be essential. 3. There is moderate to severe bilateral hydroureteronephrosis, right side greater than left. The ureters are dilated to the inflammatory process in the pelvis. 4. Right-sided nephrolithiasis. 5. Trace abdominopelvic ascites and trace right pleural effusion. 6. An indeterminate 6 mm pulmonary nodule is again seen at the left lung base. Attention at follow-up will be required. 7. Additional findings as above. ACT 112: Negative or not required by law. Electronically signed by: Barron Hardy M.D. 02/01/2025 3:16 PM Code Status & VTE Plan VTE Prophylaxis Plan VTE Prophylaxis will be ordered: Yes PG Care Time/CCT Total # of Minutes Spent Total Time Spent with Patient: Total time spent is greater than 50% in coordination of care (as documented) at patient's floor/unit and/or counseling patient: Coding Level of Care Code 59891 INT INP/OBS CARE 2/55MIN Diagnoses Hydronephrosis N13.30 Bladder tumor D49.4 High blood pressure I10 Hyperlipidemia E78.5 CAD (coronary artery disease) I25.10
[2025-02-01] MEDS: SODIUM CHLORIDE 0.9% 1,000 ML IV SCH (18:33)
[2025-02-01] MEDS ORDERED: ONDANSETRON INJ 2 MG/ML 2 ML VIAL IV PRN (20:14)
[2025-02-01] MEDS: HYDROmorphone INJ 0.5 MG/0.5 ML SYR IV PRN (20:20)
[2025-02-01] MEDS: DOCUSATE SODIUM 100 MG CAP PO SCH (21:22)
[2025-02-01] MEDS: PRAVASTATIN SOD 20 MG TAB PO SCH (21:22)
[2025-02-01] MEDS: POLYETHYLENE (MIRALAX) 17 GM PACK PO SCH (21:22)
[2025-02-01] MEDS: HYDROmorphone INJ 0.5 MG/0.5 ML SYR IV STA (23:26)
[2025-02-02 06:09] LABS: Hematocrit (blood only) 29.7 % (42.0-52.0); Hemoglobin 10.5 g/dl (14.0-18.0); Mean Corpuscular Hemoglobin 31.4 pg (25.0-34.0); Mean Corpuscular Volume 88.9 fL (80.0-100.0); Platelet Count 163 K/uL (130-400); RDW Standard Deviation 43.6 fL (36.4-46.3); Red Blood Count 3.34 M/uL (4.70-6.10); White Blood Count 7.64 K/ul (4.8-10.8)
[2025-02-02] MEDS: ACETAMINOPHEN 325 MG TAB PO PRN (06:22)
[2025-02-02 06:30] LABS: Anion Gap 8.0 (3-11); Blood Urea Nitrogen 56.0 mg/dl (6-23); Calcium 8.9 mg/dl (8.6-10.3); Carbon Dioxide 19.0 mmol/L (21-32); Chloride 112.0 mmol/L (98-107); Creatinine Clr Calc Pharmacy 12.8 ml/min; Glucose 95.0 mg/dl (70-99(Fasting)); Potassium 4.4 mmol/L (3.5-5.1); Sodium 139.0 mmol/L (136-145)
--- NOTE | 2025-02-02 09:35 | Urology Consultation ---
Date of Consultation February 02, 2025 Assessment & Plan (1) FIDEL (acute kidney injury): (2) Hydronephrosis: (3) Bladder tumor: (4) Prostate CA: (5) Benign localized prostatic hyperplasia with lower urinary tract symptoms (LUTS): (6) Jeff cell cancer: Plan Patient status post TURBT by Dr. Andre earlier in the week. Was placed on antibiotics for outpatient coverage. Subsequently had to stop after developing angioedema. Was not placed on a new antibiotic. Has subseque ntly had worsening voiding issues and problems. Patient Re-presented to the ER with obstructive issues. Patient had low urine output. Had undergone repeat imaging. Bilateral hydronephrosis appeared to had increased significantly. Had moderate to severe hydronephrosis on the right side. Has hydro on the left. Had large mass within the bladder causing severe obstruction. Stents were unable to be placed as the UOs were not able to be identified due to tumor involvement. Patient has continued to have pain in the lower quadrant comes in waves. Largely on the left. Vitals have remained stable and patient has been afebrile. Has been tolerating IV antibiotics. Has been undergoing gentle hydration. Creatinine increased this morning to 4.37. Had been above 3 we typically had been around 1. During the workup for the tumor patient's creatinine had been elevating as well. Patient's PSA has previously been significantly elevated and does have a history of prostate cancer. PSA was 20.6. Patient's hemoglobin has remained stable.White count was 7.64. All vitals were reviewed. Patient has mild hypertension. Has not had significant fever. Current temp is 36.8. Respirations 82. Patient independently assessed, examined, interviewed, and evaluated. Note generated completely by myself. Patient's vitals and labs were all reviewed. Pertinent values in the HPI and plan section. Imaging was reviewed interpreted by myself. Likely worsening hydronephrosis bilaterally. More severe hydronephrosis seen on the right side. Significant thickening of the bladder with perinephric stranding possible infection versus inflammation. Otherwise agree with read. Vitals were reviewed. Discussed findings extensively with patient and family. Reviewed with nurse practitioner as well as consulting physicians/team. Extensively reviewed with the hospitalist this morning. Patient's complicated medical and surgical history was reviewed and summarized above. Patient's surgical, medical, social, and family history were all reviewed with pertinent values as above. Discussed patient's current diagnosis as well as concerns and issues. Reviewed different options moving forward. Discussed potential risks and benefits as well as possible options and concerns. Reviewed potential surgical options and interventions. Discussed potential issues and concerns related to intervention. Risk and benefits were discussed extensively with patient and any available family. Discussed potential risks related to anesthesia. Discussed risks of bleeding infection and injury. Patient had already had extensive attempts for placement of stents after resection. Further attempts would likely also be unsuccessful. Patient does need drainage would likely need to rely on nephrostomy tube placement at an outlying facility. Would likely need to be transferred for this procedure. Currently has catheter in place and is draining urine. Did review extensively options with both patient and the hospitalist team. Would recommend increasing hydration would also r recommend serial labs for monitoring of FIDEL to see if it does start to improve with more aggressive hydration. Plan to continue with broad-spectrum antibiotic coverage. If patient is having worsening obstruction issues secondary to inflammation and infection improving hydration and coverage with antibiotics will likely improve issues over time. Would also recommend maintain catheter. If patient does need emergent or urgent intervention will likely need to move forward with transfer for nephrostomy tube. If patient develops severe fevers or if pain becomes severe and unbearable would likely need to consider as well if FIDEL worsens or if urine output drastically decreases. Will plan to continue to monitor and reassess. Call if any major changes or issues. History of Present Illness Attending Physician: Yue Barth MD History of Present Illness New consultation for patient with significant FIDEL with UTI/Pyelo, discomfort, and ill feelings. Patient had undergone transurethral resection of bladder tumor by Dr. Andre earlier in the week. Was placed on antibiotic but had to stop due to angioedema face. Was not placed on a new antibiotic. Presented with worsening voiding issues and was found to be in retention as well as worsening hydronephrosis. Patient had catheter placed and was admitted for IV hydration. Was also placed on ceftriaxone for antibiotic coverage. Patient has been dealing with worsening flank pelvic and groin pain. Patient developed sudden onset of pain into flank going down and radiating into groin and back in waves comes and goes. Can be severe at times. Discussed and reviewed patient's family history for any history of issues, infections, and disease. 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 Patient does have a history of malignancy. Also, discussed patient's medical/surgery history especially related to obstructive issues and kidney problems. Creatinine has continued to elevate with gentle hydration. Pain has continued to increase. Urine output has remained somewhat low but does appear to be slightly increasing. Urine did appear to be clear without significant obstruction at the bladder after catheter placement. Patient was admitted and is undergoing observation with broad spectrum IV antibiotics. Allergies Allergy/AdvReac Type Severity Reaction Status Date / Time Penicillins Allergy Unknown Unknown Verified 01/29/25 05:57 Home Medications Medication Instructions Recorded Confirmed Type amlodipine 10 mg tablet 10 mg PO QAM 01/20/22 02/01/25 History cholecalciferol (vitamin D3) 25 25 mcg PO QAM 01/20/22 02/01/25 History mcg (1,000 unit) capsule ezetimibe 10 mg tablet (Zetia) 10 mg PO QAM 01/20/22 02/01/25 History multivitamin 1 tab PO QAM 01/20/22 02/01/25 History nitroglycerin 0.4 mg sublingual 0.4 mg sublingual Q5M PRN Chest 01/20/22 02/01/25 History tablet Pain pravastatin 20 mg tablet 20 mg PO HS 01/20/22 02/01/25 History omega 3-ney-dcx-fish oil 60 mg-90 1 cap PO HS 04/19/22 02/01/25 History mg-500 mg capsule (Fish Oil) esomeprazole magnesium 40 mg 40 mg PO QAM 06/20/24 02/01/25 History capsule,delayed release (Nexium) tadalafil 5 mg tablet 5 mg PO QAM #90 tabs 07/25/24 02/01/25 Rx acetaminophen 500 mg tablet 1,000 mg PO TID PRN Pain 01/25/25 02/01/25 History (Tylenol Extra Strength) aspirin 81 mg capsule 81 mg PO QAM 01/25/25 02/01/25 History coQ10 (ubiquinol) 200 mg capsule 200 mg PO HS 01/25/25 02/01/25 History methylcellulose (laxative) 1 tbsp PO QAM 01/25/25 02/01/25 History (Citrucel Sugar Free oral powder) vitamins A,C,K-pkzo-qgwsun 4,296 1 cap PO BID 01/25/25 02/01/25 History mcg-226 mg-90 mg capsule (PreserVision AREDS) ciprofloxacin HCl 500 mg tablet 500 mg PO BID #6 tabs 01/29/25 02/01/25 Rx (Cipro) Patient History Medical History Bladder mass incidentally found while at [facility] ER 12/2024 - reason for upcoming procedure Osteoarthritis Right bundle branch block History of adverse reaction to anesthesia after 05/22/24 surgery under GA @ [facility]; experienced urinary retention that required ER visit - [facility] "Ended up needing catheter which resulted with UTI. Its all cleared up now" [place] cell cancer excision tumor 03/22/24 R elbow; tumor bed and R axillary sentinel LN bx. (pathology results for LN and tumor bed showed no evidence of tumor) had radiation treatments and currently gets Keytruda infusions. Hearing loss Bilateral hearing aids BPH (benign prostatic hyperplasia) with LUTS History of small bowel obstruction 2019 - No surgery - No current issues at this time Hyperlipidemia HTN (hypertension) GERD (gastroesophageal reflux disease) CAD (coronary artery disease) x2 stents - placed in [place] Dr Bari Casanova 10/2020 (R sided PLB and R sided PDA) - now follows Dr Marcello Borja (per most recent note, 'with residual 50% Cx lesion and mild LAD disease) Prostate cancer 2019 - No surgery/Chemo/Xrt- Follows [facility] Asbestos exposure "Many many years ago" Follows with PCP - monitoring/no issues Surgical History Hx of elbow surgery 03/22/24 R elbow tumor removed; 05/22/24 tumor bed excision and sentinel LN bx Hx of esophagogastroduodenoscopy Hx of colonoscopy H/O prostate biopsy H/O foot surgery Left H/O epididymectomy Hx of appendectomy History of cardiac cath x2 stents - placed in [place] Dr Bari Casanova 2017 - now follows Dr Marcello Borja Family History Family/Other Hypertension Brother Heart disease Cancer Other No family history of adverse response to anesthesia Social History Smoking Status: Never smoker Tobacco Type: Declines Second Hand Exposure: No; Do You Dip or Chew Tobacco: No; Hx Alcohol Use: No Hx Substance Use: No Preferred Language: Gabonese Communication Ability: Effective String Top Sealer Required: No Beliefs That Will Affect Care: None marital status: Current Living Situation: Spouse current occupational status: retired Feels Safe at Home: Yes Assistive Devices: Cane, Glasses and Hearing Aid - Bilateral Review of Systems Review of Systems: All systems reviewed & are unremarkable except as noted in HPI & below Physical Exam Physical Exam: General: Alert and oriented x 3 in no acute distress. HEENT: Normocephalic Atraumatic. Inspection normal. Cranial Nerves 2-12 Grossly intact. Nares are clear. Neck is supple. Normal inspection of face. Normal inspection of neck. Neurologic: No deficits on inspection. Baseline for motor function and sensory. Psychologic: Normal affect. Respiratory: Nonlabored. No use of accessory muscles. No tachypnea or dyspnea. Cardiovascular: No tachycardia Skin: [place] and Dry. No rashes or visible lesions. Extremities: Moving without issues. No motor deficits on inspection Lymphatics: Mild Abdomen: Soft Non-distended. Significant discomfort mainly on the left pelvic region. No rebound or guarding. : Horowitz catheter in place draining clear urine. Results & Data Vital Signs (Past 12 Hours) Vital Signs Temp Pulse Resp BP Pulse Ox O2 Del Method 02/02/25 07:19 36.8 C 82 18 144/65 H 97 Room Air PG Care Time/CCT Total # of Minutes Spent Total Time Spent with Patient: Total time spent is greater than 50% in coordination of care (as documented) at patient's floor/unit and/or counseling patient: Coding Level of Care Code 85332 INT INP/OBS CARE 3/75MIN Diagnoses FIDEL (acute kidney injury) N17.9 Hydronephrosis N13.30 Bladder tumor D49.4 Prostate CA C61 Benign localized prostatic hyperplasia with lower urinary tract symptoms (LUTS) N40.1 [place] cell cancer C4A.9
[2025-02-02] MEDS: SODIUM CHLORIDE 0.9% 1,000 ML IV SCH (09:46)
[2025-02-02] MEDS ORDERED: Nursing to Pharmacy Communication SCH (11:15)
[2025-02-02] MEDS: POLYETHYLENE (MIRALAX) 17 GM PACK PO ONE (12:56)
[2025-02-02] MEDS: cefTRIAXone SODIUM 1,000 MG/50 ML BAG IV SCH (15:58)
[2025-02-02 16:05] LABS: Anion Gap 7.0 (3-11); Blood Urea Nitrogen 57.0 mg/dl (6-23); Calcium 9.1 mg/dl (8.6-10.3); Carbon Dioxide 19.0 mmol/L (21-32); Chloride 110.0 mmol/L (98-107); Creatinine Clr Calc Pharmacy 10.6 ml/min; Glucose 119.0 mg/dl (70-99(Fasting)); Potassium 4.5 mmol/L (3.5-5.1); Sodium 136.0 mmol/L (136-145)
[2025-02-02] MEDS: HYDROmorphone INJ 0.5 MG/0.5 ML SYR IV STA ×2 (17:29→19:58)
--- NOTE | 2025-02-02 17:32 | Discharge Summary ---
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 3 days ago, he had a cystoscopy and partial resection of the left urinary bladder mass, pathology pending. He received IV ciprofloxacin intraoperatively. Soon after he was discharged same day, he developed angioedema for which he went to an outside hospital and got admitted overnight. Ciprofloxacin and lisinopril were discontinued. He was doing well at home but last night, he started with a low back pain and lower abdominal pain. He had been constantly writhing in pain unable to get comfortable. No fever. He has had decreased urinary output but no blood in urine. The tells me that the initial plan was to put a stent in the ureteral orifice, but because of the extent of the cancer, the surgeon was unsuccessful. He had screening tests done in the emergency room. No leukocytosis. Creatinine was bumped from 1.6 1-month ago to 3.4 today. Urinalysis was fairly unremarkable. CT abdomen and pelvis showed some inflammation around the bladder, rectum which could represent infectious/inflammatory cystitis/prostatitis. He also has moderate to severe bilateral hydroureteronephrosis, right greater than left. The ED physician discussed the CT findings with the urologist who recommended admission, IV ceftriaxone, blood culture, urine culture. There is some concern for obstructive uropathy due to inflammation. The patient is in significant amount of pain requiring several doses of morphine and IV Dilaudid. He is finally sleeping now. Principal Diagnosis Acute kidney injury due to obstructive uropathy, needing percutaneous nephrostomy tube placement necessitating transfer to tertiary care center Anuria due to acute kidney injury Low back pain/lower abdominal pain related to obstructive uropathy/cystitis Discharge Exam General: Awake, conversant. Smiling. Accompanied by and daughter in the room. Heart: S1, S2/regular rate and rhythm, no murmur rubs or gallops Lungs: Clear to auscultation bilaterally. Normal effort Abdomen: Soft/nondistended. Tenderness in the mid and lower abdomen with no rebound, rigidity or guarding. No hepatosplenomegaly Extremities: No clubbing/cyanosis. 1+ pitting bilateral edema Behavior: Appropriate, cooperative Discharge Data Allergies Allergy/AdvReac Type Severity Reaction Status Date / Time Penicillins Allergy Unknown Unknown Verified 01/29/25 05:57 Consultations 02/01/25 16:51 Consult Urology Routine 02/01/25 16:55 ED Decision to Admit Stat 02/01/25 17:22 Consult Urology Stat Ordered Studies Abdomen/Pelvis CT 02/01/25 14:30 CT SCAN OF THE ABDOMEN AND PELVIS WITHOUT IV CONTRAST CLINICAL HISTORY: Back pain. Lower abdominal pain. Recent cystoscopy. COMPARISON STUDY: Abdominal CT dated 12/22/2024. PET/CT dated 04/30/2024. TECHNIQUE: CT scan of the abdomen and pelvis is performed from the lung bases to the proximal femora. Images are reviewed in the axial, sagittal, and coronal planes. IV contrast was not administered for this examination. Note that the examination is suboptimal without IV contrast. A dose lowering technique was utilized adhering to the principles of ALARA. CT DOSE: 722.8 mGy.cm FINDINGS: Lung bases: The heart is enlarged noting trace pericardial effusion. The coronary arteries are densely calcified. There is trace right pleural effusion. 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 There is dependent atelectasis. A 5 mm left basilar pulmonary nodule is seen on image #47. There is a tiny hiatal hernia. Liver: The unenhanced liver is normal in size, contour, and attenuation. There is no intrahepatic biliary ductal dilatation. Gallbladder: Unremarkable. Spleen: Normal in size and attenuation. Pancreas: The unenhanced pancreas is grossly unremarkable. Adrenal glands: Unremarkable. Kidneys: The unenhanced kidneys are normal in size. There is moderate to severe bilateral hydroureteronephrosis, right side greater than left. The ureters are dilated to the inflammatory process in the pelvis. There are at least 4 nonobstructing right renal calculi which measure up to 7 mm. The left calculi are clearly seen and there is no ureteral stone. There is no evidence of contour deforming renal mass lesion. Abdominal vasculature: There is moderate to advanced atherosclerotic calcification and mild ectasia of the abdominal aorta. Bowel: The rectal wall appears markedly thickened with surrounding inflammation. There is no bowel obstruction. Moderate fecal retention is seen throughout the colon. There are scattered colonic diverticula without CT evidence of acute diverticulitis. A duodenal diverticulum is noted. The appendix is not visualized. Peritoneum: There is trace perihepatic ascites. There is also free fluid in the right lower quadrant. No intraperitoneal free air is identified. Lymphadenopathy: None. Pelvic viscera: The prostate gland is enlarged and heterogeneous. A central filling defect suggests prior TURP. The bladder is distended and contains intraluminal gas. The bladder wall is significantly thickened, asymmetrically greatest posteriorly and on the left. The degree of bladder wall thickening is significantly increased or 12/22/2024. The bladder lesion seen on the prior study is not discretely visualized. There is significant pericystic inflammation, which extends around the rectum and in the presacral region. Skeletal structures: The skeletal structures are osteopenic. There is mild to moderate lumbosacral spondylosis. Minimal anterolisthesis is seen at L4-L5. No lytic or blastic lesions are seen. IMPRESSION: 1. The bladder is distended and contains intraluminal gas. There is significant and asymmetric bladder wall thickening which is greatest posteriorly. The mass lesion seen on 12/22/2024 is not clearly visualized and may have been resected. This is suboptimally assessed without IV contrast. 2. There is significant inflammation around the bladder. The rectum is thick walled with surrounding inflammation, and there is also inflammatory change in the presacral space. This could represent an infectious or inflammatory cystitis/prostatitis. This could also be treatment related if the patient is receiving radiation. Clinical and laboratory correlation will be essential. 3. There is moderate to severe bilateral hydroureteronephrosis, right side greater than left. The ureters are dilated to the inflammatory process in the pelvis. 4. Right-sided nephrolithiasis. 5. Trace abdominopelvic ascites and trace right pleural effusion. 6. An indeterminate 6 mm pulmonary nodule is again seen at the left lung base. Attention at follow-up will be required. 7. Additional findings as above. ACT 112: Negative or not required by law. Electronically signed by: Barron Hardy M.D. 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 Creatinine is bumped. CT abdomen shows bilateral hydronephrosis. Concern for obstructive uropathy #Acute kidney injury Most likely obstructive uropathy with CT showing bilateral hydronephrosis and creatinine bumped by 2 points since a month ago Recent cystoscopy 3 days ago with successful partial resection of bladder mass but unsuccessful stenting of the ureter CT abdomen shows inflammation within the bladder, outside the bladder and around the rectum suggesting prostatitis/cystitis Per urology, the patient will need some IV antibiotics and IV fluids. He initially did not recommend transfer from the ER. He recommended admission to the hospital. Patient was started on IV ceftriaxone and was admitted Clinically, the patient was doing slightly better with pain better controlled. However this morning his creatinine went up from 3-4. Repeat labs at 3 PM jane wed creatinine up to 5. I have been speaking to the urologist, the patient, the nurse, the family all day today. When the creatinine went up to 5 and he became anuric, a renal ultrasound was ordered and transfer was initiated so that the patient can get a percutaneous nephrostomy tube placed. The urologist did not think another attempt of retrograde stent placement was going to be any useful Patient was accepted by Dr. Shayan Church at [facility]. 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 Total Time Total Time Spent Total Time Spent (In Minutes): 35 Discharge Plan Discharge Items Patient Disposition: Transfer Acute Care Hospital Reason For Visit: ABDONIMAL AND BACK PAIN Discharge Diagnosis: Acute kidney injury due to obstructive uropathy, needing percutaneous nephrostomy tube placement necessitating transfer to tertiary care center Anuria due to acute kidney injury Low back pain/lower abdominal pain related to obstructive uropathy/cystitis Condition on Discharge: Fair Activity: As commented below Activity Comment: Bedrest Non-emergency contact: Primary Care Provider Call non-emergency contact if: you have any medication questions and your symptoms worsen Follow-up/Referrals: Santana Bangura DO [Primary Care Provider] - Diet: Other - See Diet Comment Diet Comment: N.p.o. until procedure Addtl Attending Provider Instructions: Advised to note that you are being transferred to [facility] in [place] so you can have a percutaneous nephrostomy tube placed Pending Studies at Discharge: Yes Studies:: Renal ultrasound Stand-Alone Forms: My [facility] Skilled Items Patient informed of condition?: Yes DNR: Yes Discharge Level of Care: Other Communicable Disease: No Discharge Prognosis: Deteriorating Lines: Peripheral IV Urinary Catheter: Yes Medications and DC Order Prescriptions: Continued omega 8-wmb-cib-fish oil [Fish Oil] 60-90-500 mg capsule 1 cap PO HS amlodipine 10 mg tablet 10 mg PO QAM ezetimibe [Zetia] 10 mg tablet 10 mg PO QAM multivitamin Tablet 1 tab PO QAM nitroglycerin 0.4 mg tablet, sublingual 0.4 mg sublingual Q5M PRN (Reason: Chest Pain) Rx Instructions: do not exceed 3 doses per episode pravastatin 20 mg tablet 20 mg PO HS cholecalciferol (vitamin D3) 25 mcg (1,000 unit) capsule 25 mcg PO QAM tadalafil 5 mg tablet 5 mg PO QAM Qty: 90 3RF esomeprazole magnesium [Nexium] 40 mg Capsule,Delayed Release(Dr/Ec) 40 mg PO QAM Citrucel Sugar Free Powder 1 tbsp PO QAM acetaminophen [Tylenol Extra Strength] 500 mg Tablet 1,000 mg PO TID PRN (Reason: Pain) PreserVision AREDS 4,296 mcg-226 mg-90 mg Capsule 1 cap PO BID coQ10 (ubiquinol) 200 mg Capsule 200 mg PO HS Held aspirin 81 mg Capsule 81 mg PO QAM Hold Instructions: Resume on 02/16/25. Hold until advised to resume by next provider Discontinued ciprofloxacin HCl [Cipro] 500 mg tablet 500 mg PO BID Qty: 6 0RF Patient Comments: filled 01/29 3 day supply #6 Discharge Orders: Discharge Order (Routine); Ordered 02/02/25 Ordered By: Yue Barth Admission Data Admit Date/Time: 02/01/25 17:22 Attending Provider: Yue Barth Admit Provider: Yue Barth Primary Care Provider: Santana Bangura Other Providers: Eric Perez; Russel Mart; Yue Barth
--- NOTE | 2025-02-02 17:53 | Ultrasound Report ---
EXAM: US renal/blad retro comp CLINICAL HISTORY: Anuric, renal function worse, eval hydronephrosis. TECHNIQUE: Real-time grayscale ultrasound examination of the kidneys and urinary bladder was performed. COMPARISON: No prior imaging available. FINDINGS: Right Kidney: Measures approximately 12.6 x 6.3 x 7.8 cm ? normal in size. Parenchymal echogenicity appears normal. Moderate hydronephrosis is present. Proximal hydroureter is noted, measuring up to 2.68 cm. No renal calculi identified. Left Kidney: Measures approximately 11.0 x 5.5 x 6.4 cm ? normal in size. Parenchymal echogenicity appears normal. Mild hydronephrosis is present. Visualization is limited on the left side due to overlying bowel gas. Urinary Bladder: Urinary bladder is empty. Horowitz catheter balloon visualized in situ. Apparent bladder wall thickening is noted. Additional Findings: Mild free fluid identified superior to the urinary bladder. IMPRESSION: - Moderate right-sided hydronephrosis with associated proximal hydroureter (up to 2.68 cm). - Mild left-sided hydronephrosis, limited evaluation due to bowel gas. - Empty urinary bladder with Horowitz bulb in situ; apparent bladder wall thickening may suggest cystitis. - Mild pelvic free fluid noted RECOMMENDATIONS: Urologic consultation recommended to evaluate for possible obstructive uropathy contributing to anuria and worsening renal function. Correlate clinically with serum creatinine, renal function tests, and Horowitz catheter function. Electronically signed by Eb Wagoner 02-02-2025 5:52 PM
[2025-02-02 20:08] VITALS: BP 167/74; PULSE 87; RESP 18; TEMP 97.5; O2SAT 96
== END 2025-02-02 22:16 | disposition short-term general hospital (02) | DRG 684 ==
LOC: ED 13:57 → 3W 17:22